=== PATIENT | male | born 1975 | race Caucasian/White ===

== ENCOUNTER → 2024-08-18 09:37 | Outpatient (BNVA) | payer OTHER, SELFPAY | PROVIDERS: PCP Nurse Practitioner Family; Visit Provider Family Medicine | DX: R21 Rash and other nonspecific skin eruption (principal) | CPT/HCPCS: 80053; 80061; 85025; 86003; 86008 ==

== ENCOUNTER 2024-11-08 10:03 | Emergency (ER) | payer OTHER, SELFPAY ==
[2024-11-08 10:11] VITALS: BP 128/80; PULSE 78; RESP 16; TEMP 36.6; O2SAT 97; BMI 34.4
--- NOTE | 2024-11-08 10:30 | XR_ITS ---
WS: [id number] XR ankle RT min 3V* 10022 REASON FOR EXAM: pain FINDINGS: Moderate soft tissue swelling predominating over the lateral malleolus. Possible small minimally displaced avulsion fracture from the apex of the lateral malleolus. Significant osteoarthritis of the ankle joint. XR/XR ankle RT min 3V* 11595 IMPRESSION: Possible lateral malleolar fracture as above. Significant osteoarthritis of the ankle joint.
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
--- OUTSIDE RECORDS SUMMARY | 2024-11-08 10:35 | XMS_ITS | Encounter Summary ---
Author Organization [facility] Address [address] [place] [address] Care Team Providers Care Building Components Designer Name Role Phone Domingo Butterfield MD Primary Care Provider [phone] Encounter Details Date Type Department Care Team (Late st Contact Info) Description 11/02/2024 External Device Data [facility] Provider, Abstract NO ADDRESS ON FILE Social History Tobacco Use Types Packs/Day Years Used Date Smoking Tobacco: Never Smokeless Tobacco: Never Alcohol Use Standard Drinks/Week Comments Yes 0 [...] on file Sexual Orientation Not on file documented as of this encounter Plan of Treatment Not on file documented as of this encounter Visit Diagnoses Not on filedocumented in this encounter Care Teams Building Components Designer Relationship Specialty Start Date End Date Domingo Butterfield MD [address] [facility] [address] [place] [address] PCP - General Family Practice 07/18/23 documented as of this encounter
== END 2024-11-08 12:50 | disposition left against medical advice (07) ==
PROVIDERS: Emergency Provider Family Medicine; PCP Nurse Practitioner Family
DX: Z53.21 Procedure and treatment not carried out due to patient leaving prior to being seen by health care provider (principal); M25.571 Pain in right ankle and joints of right foot
CPT/HCPCS: 73610